=== PATIENT | male | born 1985 | race Caucasian/White ===

== ENCOUNTER 2020-04-21 12:57 | Inpatient (IN) ==
[2020-04-21] MEDS ORDERED: hydrOXYzine pamoate 25 MG CAPSULE PO STA (13:52)
[2020-04-21 13:54] LABS: Bacteria,Urine Few per hpf (None-Few); Bilirubin,Urine Negative (Negative); Blood,Urine Negative (Negative); Clarity,Urine Turbid (Clear); Color,Urine Yellow (Yellow); Glucose,Urine (UA) Normal (Normal); Hyaline Casts,Urine Few per lpf (None Seen); Ketones,Urine Trace mg/dL (Negative); Leukocyte Esterase,Urine Negative (Negative); Mucus,Urine Few per lpf (None-Few); Nitrite,Urine Negative (Negative); Protein,Urine 30 mg/dL (Neg-Trace); RBC,Urine 0-3 per hpf (0-3); Specific Gravity,Urine 1.025 (1.010-1.025)
[2020-04-21 13:54] LABS: Basophils # 0.2 K/mcL (0.0-0.2); Basophils % 2.3 %; Eosinophils # 0.2 K/mcL (0.0-0.6); Eosinophils % 1.7 %; Hematocrit 42.1 % (37.5-50.1); Hemoglobin 13.7 g/dL (12.9-16.9); Immature Granulocytes % 0.3 % (0-4); Lymphocytes # 1.9 K/mcL (0.6-4.6); Lymphocytes % 21.8 %; Mean Corpuscular HGB Conc 32.5 g/dL (31.6-35.5); Mean Corpuscular Hemoglobin 30.5 pg (28.0-33.3); Mean Corpuscular Volume 93.8 fL (83.0-100.0); Mean Platelet Volume 10.8 fL (9.4-12.4); Monocytes # 0.8 K/mcL (0.0-1.3); Monocytes % 9.1 %; Neutrophils # 5.7 K/mcL (1.6-8.9); Platelet Count 208 K/mcL (140-400); Red Blood Count 4.49 M/mcL (4.19-5.50); Red Cell Distribution Width 14.7 % (11.5-14.5); Segmented Neutrophils % 64.8 %; White Blood Count 8.8 K/mcL (4.3-11.1)
[2020-04-21 13:59] LABS: Amphetamine Screen,Urine Negative ng/mL (Cutoff=1000); Barbiturate Screen,Urine Positive ng/mL (Cutoff=200); Benzodiazepines Screen,Urine Negative ng/mL (Cutoff=200); Cannabinoid Screen,Urine Positive ng/mL (Cutoff = 50); Cocaine Screen,Urine Negative ng/mL (Cutoff= 300); Opiate Screen,Urine Negative ng/mL (Cutoff=300); Phencyclidine Screen,Urine Negative ng/mL (Cutoff=25)
[2020-04-21 14:10] LABS: Acetaminophen < 10 mcg/mL (10-20); BUN/Creatinine Ratio 13 (6-26); Blood Urea Nitrogen 11 mg/dL (6-20); Calcium 9.5 mg/dL (8.6-10.3); Carbon Dioxide 26 mEq/L (23-29); Chloride 104 mEq/L (98-107); Ethanol < 10 mg/dL (Less than 10); Glucose 124 mg/dL (70-105); Osmolality,Calculated 285 (280-300); Potassium 3.5 mEq/L (3.5-5.1); Salicylate < 2.5 mg/dL (15.0-30.0); Sodium 137 mEq/L (136-145); eGFR For African Americans > 60 (> 60); eGFR For Non-African Americans > 60 (> 60)
[2020-04-21] MEDS ORDERED: Haloperidol Lactate 5 MG/ML VIAL IM PRN (15:36)
[2020-04-21] MEDS ORDERED: haloperidoL 5 MG TABLET PO PRN (15:36)
[2020-04-21] MEDS ORDERED: *HR* LORazepam 1 MG TABLET PO PRN (15:36)
[2020-04-21] MEDS ORDERED: *HR* LORazepam 2 MG/ML VIAL IM PRN (15:36)
[2020-04-21] MEDS ORDERED: Ibuprofen 400 MG TABLET PO PRN (15:36)
[2020-04-21] MEDS ORDERED: MOM Conc 10 ML UD.LIQ PO PRN (15:36)
[2020-04-21] MEDS ORDERED: hydrOXYzine pamoate 25 MG CAPSULE PO PRN ×2 (15:36→16:23)
[2020-04-21] MEDS ORDERED: traZODone 50 MG TABLET PO PRN (15:36)
[2020-04-21] MEDS ORDERED: Mag Hydrox/Al Hydrox/Simeth 30 ML UDC PO PRN (15:36)
[2020-04-21] MEDS ORDERED: Nicotine 2 MG GUM BC PRN (15:36)
[2020-04-21] MEDS ORDERED: rOPINIRole 0.25 MG TABLET PO PRN (16:23)
[2020-04-21] MEDS ORDERED: tiZANidine 4 MG TABLET PO PRN (16:23)
[2020-04-21] MEDS ORDERED: cloNIDine HCL 0.1 MG TABLET PO PRN (16:23)
[2020-04-22] MEDS ORDERED: Thiamine (B-1) 100 MG TABLET PO SCH (09:00)
[2020-04-22] MEDS ORDERED: Folic Acid 1 MG TABLET PO SCH (09:00)
[2020-04-22 09:39] VITALS: BP 124/84
== END 2020-04-22 11:11 | disposition other institution (70) | DRG 753 ==
LOC: EMEROOARM 12:57 → 1ANU 15:33
PROVIDERS: ADMIT Psychiatry & Neurology Psychiatry; ATTEND Psychiatry & Neurology Psychiatry